=== PATIENT | male | born 1970 | race Caucasian/White ===

== ENCOUNTER 2016-08-23 14:52 | Inpatient (IN) | payer BC, OTHER ==
[2016-08-23 15:35] VITALS: BMI 39.0
--- NOTE | 2016-08-23 16:03 | DIRPT ---
CLINICAL DATA: Cough and congestion for several weeks EXAM: CHEST - 2 VIEW COMPARISON: None. FINDINGS: Cardiac shadow is within normal limits. Patchy infiltrative changes are noted throughout both lungs consistent with acute pneumonia. No sizable effusion is noted. No bony abnormality is noted. IMPRESSION: Multifocal pneumonia bilaterally. Electronically Signed By: Farhad Pérez M.D. On: 08/23/2016 16:00
[2016-08-23] MEDS ORDERED: SODIUM CHLORIDE 0.9% 3 ML FLUSH FLUSH PRN (17:15)
[2016-08-23] MEDS ORDERED: Albuterol/Ipratropium Neb 3 ML NEB NEB ONE (17:15)
--- NOTE | 2016-08-23 17:19 | EDPRACDOC ---
- General Information Information Source: Patient Mode Of Arrival: Car - History of Present Illness Onset: 4WEEKS HPI: PT STATES AROUND [place] HE DEVELOPED A URI AND WAXED AND WANED FOR APPROX 2 WEEKS STATES WAS SEEN AT URGENT CARE DX WITH PNEUMONIA PUT ON LEVAQUIN 5 DAYS AGO AND HAS BEEN GIVEN 1 ROCEPHIN AND KENALOG INJECTION AND STATES HE IS GETTING WORSE NOT BETTER. NOW SHOB WEAK HAVING BILATERAL CHEST PAIN AND CHILLS AND SWEATS, JUST DOESNT FEEL GOOD. FEVER TODAY IS 101.5 ORAL. Shortness of Breath: Moderate Relevant History: Reports: None Cough: Reports: Productive, Yellow (MILD SMALL AMOUNTS) Rhinorrhea: Reports: None Ear Symptoms: Reports: None SOB Worsens with: Reports: Exertion, Movement, Coughing, Lying Flat SOB Improves with: Reports: Nothing Associated Signs and symptoms: Reports: Cough, Fever, Other (WEAKNESS, CHILLS, DONT FEEL GOOD) <Roseanna Segura - Last Filed: 08/23/16 17:56> <Edwin Tenorio - Last Filed: 08/23/16 18:17> - General Information Chief Complaint: Dyspnea/Resp distress Stated Complaint: DX PNEUMONIA PROBLEMS BREATHING Time Seen by Provider: 08/23/16 17:14 Home Medications: Home Medications Albuterol Sulfate [Proair Respiclick] 1 puff INH Q6H PRN 08/23/16 Ibuprofen Tablet [Motrin] 800 mg PO Q6H PRN 08/23/16 Levofloxacin [Levaquin] 750 mg PO DAILY 08/23/16 Allergies/Adverse Reactions: Allergies Allergy/AdvReac Type Severity Reaction Status Date / Time No Known Allergies Allergy Verified 08/23/16 16:10 ED Past Medical History - History Reviewed Yes Nurses notes reviewed and agree except as marked Travel Outside of [place] in the Last 3 Months?: No No Past Medical History: Yes Patient has no past medical history - Patient Medical History Psychological History: Denies: Depression - Social Medical History Smoking Status: Never smoker ETOH: None Substance Abuse: None Lives With: Other Lives In: Home <Roseanna Segura - Last Filed: 08/23/16 17:56> EDM Review of Systems - Review of Systems ROS Negative Except as Marked: Yes All systems reviewed and were negative except as marked Constitutional: Chills, Fever, Weakness. negative: Fatigue, Loss of Appetite Eyes: No Symptoms Reported. negative: Redness, Blurred Vision, Double Vision, Discharge, Pain, Light Sensitive, Photophobia Ears: No Symptoms Reported. negative: Pain, Hearing Loss, Drainage, Ear Pulling Throat: No Symptoms Reported. negative: Pain, Swelling Nose: No Symptoms Reported. negative: Congestion, Bleeding, Discharge, Injection, Swelling, Deformity, Ecchymosis, Tender, Abrasion, Laceration Mouth: No Symptoms Reported. negative: Pain, Drooling Respiratory: Cough, Shortness of Breath. negative: Barky Cough, Brassy Cough, Hemoptysis, Wheezing Cardiovascular: Chest Pain (BILATERAL WHEN TAKING DEEP BREATH OR COUGHING). negative: Cyanosis, Edema, Orthopnea, Palpitations, PND, Syncope, Skin Mottling Gastrointestinal: No Symptoms Reported. negative: Pain, Constipation, Nausea, Vomiting, Diarrhea, Melena, Formula Intolerance Genitourinary: No Symptoms Reported. negative: Dysuria, Hematuria, Frequency, Discharge, Bleeding, Testicular Pain, Neurological: Weakness. negative: Dizziness, Gait Difficulty, Headache, Numbness, Seizure, Speech Difficulty Musculoskeletal: No Symptoms Reported. negative: Neck, Chestwall, Ribs, Back, Shoulder, Arm, Elbow, Forearm, Wrist, Hand, Pelvis, Hip, Femur, Knee, Leg, Ankle , Foot Integumentary: No Symptoms Reported. negative: Itching, Rash, Bruising, Wound Allergic/Immunologic: No Symptoms Reported. negative: Hives, Itching Hematologic: No Symptoms Reported. negative: Lymphadenopathy, Easy Bruising, Easy Bleeding Endocrine: No Symptoms Reported. negative: Weight Gain, Weight Loss Psychiatric: No Symptoms Reported. negative: Anxiety, Depression, Hallucinations, Insomnia, Suicidal <Roseanna Segura - Last Filed: 08/23/16 17:56> - Physical Exam Constitutional: Alert (Awake), No apparent distress Oriented to: Time, Person, Place Last recorded Vital Signs: Last Vital Signs Temp 99.7 F 08/23/16 15:31 Pulse 92 08/23/16 15:31 Resp 20 08/23/16 15:31 BP 143/86 08/23/16 15:31 Pulse Ox 93 08/23/16 15:31 Oxygen Pulse Oxygen Saturation 93 O2 Device Oxygen Flow Rate Fraction of Inspired Oxygen ( FIO2) - HEENT Head: Normal ( normocephalic) Eye Exam: Normal (PERRL, EOMI, Sclera white) Oropharynx: Normal (Pharynx:Moist without exudate,Gums-no swelling) Tympanic Membrane: Normal ENT EAC: Normal TMJ: Normal Nose: No Symptoms Reported (septum midline) Neck: Normal (FROM, trachea at midline) - Respiratory/Cardiovascular Respiratory: Rhonchi, Wheezes (RT > LT) Cardiovascular: Normal - GI Auscultation: Normal (NABS) Palpation: Normal (Soft,No rebound or guarding, non distended) Tenderness: Non tender Montgomery's Sign: Negative - Bladder: Normal - Musculoskeletal Back: Normal (Non-Tender) Extremities: Normal (Normal tone, Pulses 2+ No cyanosis or edema, FROM) - Integumentary Skin: Warm, Clammy Lymphatics: Normal (no adenopathy) - Neurologic Memory Impaired: Normal Motor Function: Normal (Normal tone, Pulses 2+ No cyanosis or edema, FROM) Cranial Nerve: Normal (CN II-X11 intact sensation, strength 5/5) Cerebellar: Normal Mood Description: Normal Perception: Normal <Roseanna Segura - Last Filed: 08/23/16 17:56> - Physical Exam Last recorded Vital Signs: Last Vital Signs Temp 101.5 F H 08/23/16 17:10 Pulse 94 08/23/16 17:48 Resp 22 08/23/16 17:48 BP 131/72 08/23/16 17:48 Pulse Ox 93 08/23/16 18:01 Oxygen Pulse Oxygen Saturation 93 O2 Device Nasal Cannula Oxygen Flow Rate 2 Fraction of Inspired Oxygen ( FIO2) <Edwin Tenorio - Last Filed: 08/23/16 18:17> ED SOB MDM - Differential Diagnosis Differential Diagnosis: Heart Failure, Pnuemonia, Respiratory Insufficiency - Results Result Diagrams: 08/23/16 17:15 08/23/16 17:15 - EKG EKG #1 EKG Time: 17:50 -: Yes EKG interpreted by me Rate: bpm: 93 [place]: Normal (D) Rhythm: NSR Block: None Hypertrophy: None ST: Normal - Diagnostic Imaging CXR Image interpreted by: Radiologist <Roseanna Segura - Last Filed: 08/23/16 17:56> - Results Result Diagrams: 08/23/16 17:15 08/23/16 17:15 Results: WBC 5.6 xk/uL (3.8-10.8) 08/23/16 17:15 RBC 5.37 xM/uL (4.70-6.10) 08/23/16 17:15 Hgb 15.5 g/dL (14.0-18.0) 08/23/16 17:15 Hct 45.5 % (42-52) 08/23/16 17:15 MCV 85 fL (80-94) 08/23/16 17:15 MCH 28.9 pg (27-32) 08/23/16 17:15 MCHC 34.1 g/dl (33-36) 08/23/16 17:15 RDW 13.9 % (11.5-14.5) 08/23/16 17:15 Plt Count 177 xk/uL (130-400) 08/23/16 17:15 MPV 8.6 fL (7.4-10.4) 08/23/16 17:15 Neut % (Auto) 78.6 % (45-76) H 08/23/16 17:15 Lymph % (Auto) 13.1 % (17-44) L 08/23/16 17:15 [place] % (Auto) 6.9 % (3-10) 08/23/16 17:15 Eos % (Auto) 0.0 % (0-5) 08/23/16 17:15 Baso % (Auto) 1.4 % (0-2) 08/23/16 17:15 Absolute Neuts (auto) 4.37 xk/uL (1.7-8.2) 08/23/16 17:15 Absolute Lymphs (auto) 0.73 xk/uL (0.65-4.75) 08/23/16 17:15 PT 10.9 SEC (9.2-11.2) 08/23/16 17:15 INR 1.1 08/23/16 17:15 APTT 28.5 SEC (22-35) 08/23/16 17:15 Puncture Site Right radial 08/23/16 17:29 pH 7.490 pH UNITS (7.35-7.45) H 08/23/16 17:29 pCO2 31.0 mmHg (35-45) L 08/23/16 17:29 pO2 62.0 mmHg (80-100) L 08/23/16 17:29 HCO3 23.6 MMOL/L (22-26) 08/23/16 17:29 Total CO2 24.6 MMOL/L (23-27) 08/23/16 17:29 Base Excess 1.0 (+/- 2) 08/23/16 17:29 FiO2 % 21% 08/23/16 17:29 Specimen Drawn By Kasgl 08/23/16 17:29 Sodium 134 mEq/L (137-146) L 08/23/16 17:15 Potassium 3.7 mEq/L (3.5-5.1) 08/23/16 17:15 Chloride 98 mEq/L (98-107) 08/23/16 17:15 Carbon Dioxide 23 mMOL/L (22-33) 08/23/16 17:15 Anion Gap 17 mEq/L (8-16) H 08/23/16 17:15 BUN 12 MG/DL (9-20) 08/23/16 17:15 Creatinine 0.70 MG/DL (0.66-1.25) 08/23/16 17:15 Estimated GFR (MDRD) > 60 mL/min (>=60) 08/23/16 17:15 Glucose 130 MG/DL (70-99) H 08/23/16 17:15 Calculated Osmolality 260 MOs/Kg (270-290) L 08/23/16 17:15 Lactic Acid 2.0 mEq/L (0.7-2.1) 08/23/16 17:15 Calcium 8.6 MG/DL (8.4-10.2) 08/23/16 17:15 Total Bilirubin 0.7 MG/DL (0.2-1.3) 08/23/16 17:15 AST 45 IU/L (17-59) 08/23/16 17:15 ALT 42 IU/L (21-72) 08/23/16 17:15 Alkaline Phosphatase 71 IU/L (38-126) 08/23/16 17:15 Creatine Kinase 306 IU/L (55-170) H 08/23/16 17:15 Total Protein 7.4 G/DL (6.3-8.2) 08/23/16 17:15 Albumin 4.1 G/DL (3.5-5.0) 08/23/16 17:15 Urine Color Yellow 08/23/16 17:36 Urine Clarity Clear 08/23/16 17:36 Urine pH 5.0 (5.0-8.0) 08/23/16 17:36 Ur Specific [place] 1.020 (1.003-1.035) 08/23/16 17:36 Urine Protein Trace (NEG/TRACE) 08/23/16 17:36 Urine Glucose (UA) Neg (NEGATIVE) 08/23/16 17:36 Urine Ketones Neg (NEGATIVE) 08/23/16 17:36 Urine Occult Blood 1+ (NEG/TRACE) H 08/23/16 17:36 Urine Nitrite Neg (NEGATIVE) 08/23/16 17:36 Urine Bilirubin Neg (NEGATIVE) 08/23/16 17:36 Urine Urobilinogen 0.2 MG/DL (0-1) 08/23/16 17:36 Ur Leukocyte Esterase Neg (NEGATIVE) 08/23/16 17:36 Urine RBC 0-2 (0-2) 08/23/16 17:36 Urine WBC 0-2 (0-2) 08/23/16 17:36 Urine Bacteria Few (NEG/FEW) 08/23/16 17:36 Urine Mucus Mod (NEG/OCC) H 08/23/16 17:36 Lab Results 08/23/16 08/23/16 08/23/16 17:36 17:29 17:15 WBC RBC Hgb Hct MCV MCH MCHC RDW Plt Count MPV Neut % (Auto) Lymph % (Auto) [place] % (Auto) Eos % (Auto) Baso % (Auto) Absolute Neuts (auto) Absolute Lymphs (auto) PT 10.9 INR 1.1 APTT 28.5 Puncture Site Right radial pH 7.490 H pCO2 31.0 L pO2 62.0 L HCO3 23.6 Total CO2 24.6 Base Excess 1.0 FiO2 % 21% Specimen Drawn By Kasgl Sodium Potassium Chloride Carbon Dioxide Anion Gap BUN Creatinine Estimated GFR (MDRD) Glucose Calculated Osmolality Lactic Acid Calcium Total Bilirubin AST ALT Alkaline Phosphatase Creatine Kinase Total Protein Albumin Urine Color Yellow Urine Clarity Clear Urine pH 5.0 Ur Specific [place] 1.020 Urine Protein Trace Urine Glucose (UA) Neg Urine Ketones Neg Urine Occult Blood 1+ H Urine Nitrite Neg Urine Bilirubin Neg Urine Urobilinogen 0.2 Ur Leukocyte Esterase Neg Urine RBC 0-2 Urine WBC 0-2 Urine Bacteria Few Urine Mucus Mod H 08/23/16 08/23/16 08/23/16 17:15 17:15 17:15 WBC 5.6 RBC 5.37 Hgb 15.5 Hct 45.5 MCV 85 MCH 28.9 MCHC 34.1 RDW 13.9 Plt Count 177 MPV 8.6 Neut % (Auto) 78.6 H Lymph % (Auto) 13.1 L [place] % (Auto) 6.9 Eos % (Auto) 0.0 Baso % (Auto) 1.4 Absolute Neuts (auto) 4.37 Absolute Lymphs (auto) 0.73 PT INR APTT Puncture Site pH pCO2 pO2 HCO3 Total CO2 Base Excess FiO2 % Specimen Drawn By Sodium 134 L Potassium 3.7 Chloride 98 Carbon Dioxide 23 Anion Gap 17 H BUN 12 Creatinine 0.70 Estimated GFR (MDRD) > 60 Glucose 130 H Calculated Osmolality 260 L Lactic Acid 2.0 Calcium 8.6 Total Bilirubin 0.7 AST 45 ALT 42 Alkaline Phosphatase 71 Creatine Kinase 306 H Total Protein 7.4 Albumin 4.1 Urine Color Urine Clarity Urine pH Ur Specific [place] Urine Protein Urine Glucose (UA) Urine Ketones Urine Occult Blood Urine Nitrite Urine Bilirubin Urine Urobilinogen Ur Leukocyte Esterase Urine RBC Urine WBC Urine Bacteria Urine Mucus <Edwin Tenorio - Last Filed: 08/23/16 18:17> <Roseanna Segura - Last Filed: 08/23/16 17:56> - Departure Yes I personally saw and evaluated the patient. Disposition: Admit IP To This Hospital Education/Counseling Given To: Patient Education/Counseling Given Regarding: Diagnosis, Treatment, Prognosis Decision to Admit Time: 18:17 Decision to admit date: 08/23/16 Decision to admit: from ED - Physician Consulted Hospitalist Time Called: 18:17 Provider Called: Reza Solorio Time Leaf Conditioner Returned Call: 18:17 <Edwin Tenorio - Last Filed: 08/23/16 18:17> - Departure Condition: Fair Final Diagnosis: Failure of outpatient treatment, Multifocal pneumonia Sepsis Qualifiers: Sepsis type: sepsis due to unspecified organism Qualified Code(s): A41.9 - Sepsis, unspecified organism Referrals: None,No Provider [Primary Care Provider] - One Week
[2016-08-23 17:28] LABS: MPV 8.6 fL (7.4-10.4)
[2016-08-23 17:29] LABS: AUTOMATED BASOPHIL 1.4 % (0-2); AUTOMATED LYMPH 13.1 % (17-44); AUTOMATED MONOCYTE 6.9 % (3-10); AUTOMATED NEUTROPHIL 78.6 % (45-76)
[2016-08-23 17:34] LABS: ABG Draw Site Right Radial; ALLEN'S TEST PASS; TCO2 24.6 MMOL/L (23-27)
[2016-08-23] MEDS ORDERED: ACETAMINOPHEN 325 MG/TAB TABLET PO ONE (17:38)
[2016-08-23] MEDS ORDERED: IBUPROFEN 800 MG TAB PO ONE (17:38)
[2016-08-23 17:39] LABS: PARTIAL THROMB. TIME 28.5 SEC (22-35); PT-INR 1.1
[2016-08-23 17:45] LABS: RBC/URINE 0-2 (0-2); WBC/URINE 0-2 (0-2)
[2016-08-23 17:46] LABS: LEUKOCYTES/URINE NEG (NEGATIVE); NITRITE/URINE NEG (NEGATIVE); URINE OCCULT BLOOD 1+ (NEG/TRACE)
[2016-08-23 17:46] LABS: BLOOD UREA NITROGEN 12 MG/DL (9-20); CALCIUM 8.6 MG/DL (8.4-10.2); CALCULATED OSMOLALITY 260 MOs/Kg (270-290); CHLORIDE 98 mEq/L (98-107); CPK TOTAL WITH POSSIBLE MB 306 IU/L (55-170); GLUCOSE 130 MG/DL (70-99); SODIUM LEVEL 134 mEq/L (137-146); TOTAL PROTEIN 7.4 G/DL (6.3-8.2)
[2016-08-23 18:02] LABS: CPKMB 0.4 ng/mL (0-4.5)
[2016-08-23] MEDS ORDERED: AZITHROMYCIN 500 MG in D5W 250 ML IV ONE (18:12)
[2016-08-23] MEDS ORDERED: CEFTRIAXONE 2 GM in D5W 100 ML IV ONE (18:12)
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
[2016-08-23] MEDS ORDERED: BENZONATATE 100 MG PERLES PO PRN (19:36)
[2016-08-23] MEDS ORDERED: GUAIFEN 100 MG-DEXTROMETH 10 MG PER 5 ML PO PRN (19:36)
[2016-08-23] MEDS ORDERED: SIMETHICONE 80 MG TAB PO PRN (19:36)
[2016-08-23] MEDS ORDERED: Docusate Sodium 100 MG CAP PO PRN (19:36)
[2016-08-23] MEDS ORDERED: ACETAMINOPHEN 325 MG/TAB TABLET PO PRN (19:36)
[2016-08-23] MEDS ORDERED: PROMETHAZINE 25 MG/ML VIAL IV PRN (19:36)
[2016-08-23] MEDS ORDERED: SENNA CONCENTRATE TAB PO PRN (19:36)
[2016-08-23] MEDS ORDERED: TEMAZEPAM 15 MG CAP PO PRN (19:36)
[2016-08-23] MEDS ORDERED: BISACODYL 5 MG TAB PO PRN (19:36)
[2016-08-23] MEDS ORDERED: ACETAMINOPHEN 325 MG SUPP PR PRN (19:36)
[2016-08-23] MEDS ORDERED: ALBUTEROL 0.083% 3 ML NEB NEB PRN (19:36)
[2016-08-23] MEDS ORDERED: NS 1,000 ML IV ONE ×2 (19:40→21:41)
[2016-08-23] MEDS ORDERED: TRAMADOL HCL 50 MG TAB PO PRN (19:42)
[2016-08-23] MEDS ORDERED: Pharmacy Order Set Alert SCH (20:00)
[2016-08-23] MEDS: SODIUM CHLORIDE 0.9% 3 ML FLUSH FLUSH SCH (20:47)
[2016-08-23] MEDS: ONDANSETRON HCL 4 MG/2 ML VIAL IV PRN (20:54)
[2016-08-23] MEDS: ENOXAPARIN 80 MG/0.8 ML PFS SQ SCH (21:50)
[2016-08-23] MEDS ORDERED: Vaccine Screening Complete SCH (22:00)
[2016-08-24] MEDS ORDERED: Vancomycin HCl 0 MG in D5W 500 ML IV SCH (01:26)
[2016-08-24] MEDS: NS 1,000 ML IV SCH ×3 (02:09→23:07)
[2016-08-24] MEDS: SODIUM CHLORIDE 0.9% 3 ML FLUSH FLUSH SCH ×2 (05:53→18:07)
[2016-08-24 07:23] LABS: MPV 8.7 fL (7.4-10.4)
[2016-08-24 07:42] LABS: BLOOD UREA NITROGEN 13 MG/DL (9-20); CALCIUM 7.7 MG/DL (8.4-10.2); CALCULATED OSMOLALITY 266 MOs/Kg (270-290); CHLORIDE 101 mEq/L (98-107); GLUCOSE 97 MG/DL (70-99); SODIUM LEVEL 138 mEq/L (137-146)
--- NOTE | 2016-08-24 16:27 | GENMEDPROG ---
Chief Complaint: sob better Notes Reviewed: Yes Events from last night noted and discussed with Clinical Staff Current Medication List: Reviewed DVT Prophylaxis: Yes - Physical Examination Vital Signs and I&O: Last Vital Signs Temp 97.9 F 08/24/16 13:56 Pulse 89 08/24/16 13:56 Resp 20 08/24/16 13:56 BP 123/67 08/24/16 13:56 Pulse Ox 94 08/24/16 13:56 Oxygen Pulse Oxygen Saturation 94 O2 Device Nasal Cannula Oxygen Flow Rate 2 Fraction of Inspired Oxygen ( FIO2) Intake & Output 08/21/16 08/22/16 08/23/16 08/24/16 23:59 23:59 23:59 23:59 Intake Total 1494 2825 Output Total 50 5425 Balance 1444 -2600 Patient's weight 132.194 kg 133.47 kg General: Alert, Oriented x3, No acute distress, Well appearing, Well nourished HEENT: Normal (Normocephalic, atraumatic;EOMI.Sclera white, Nares patent, without discharge or bleeding. No oropharyngeal lesions or erythema. Mucous membranes are dry.) Neck: Non-tender, Full range of motion, Normal Trachea alignment, Normal inspection (No cervical lymphadenopathy. No supraclavicular lymphadenopathy.), No Masses palpable, Supple Lymphatics: Normal (no adenopathy) Respiratory: Diminished, Rhonchi, Wheezes (RT > LT) Cardiovascular: Regular rate and rhythm (No bradycardia or tachycardia), Normal S1, No Gallops,Rubs/Murmurs, Normal S2, Good Pedal Pulses (DP pulses 2+ bilaterally) GI: Normal bowel sounds (normal active sounds), Soft (non-distended), Non tender , No hepatospenomegaly, No masses, Obese (bmi 38.8) Extremities/Musculoskeletal: Normal pulses (DP pulses 2+ bilaterally) Skin: Warm,Dry and Intact, No rashes, No significant lesion Neurological: Strength at 5/5 X4 ext (Motor 5/5 throughout.), Normal tone, Cranial nerves 3-12 NL ( 2-12 grossly intact.) Psych/Mental Status: Appropriate, Normal Affect Lab/DI/Studies Reviewed: 08/24/16 06:50 08/24/16 06:50 Laboratory Results - last 24 hr 08/23/16 08/23/16 08/23/16 17:15 17:15 17:15 WBC 5.6 RBC 5.37 Hgb 15.5 Hct 45.5 MCV 85 MCH 28.9 MCHC 34.1 RDW 13.9 Plt Count 177 MPV 8.6 Neut % (Auto) 78.6 H Lymph % (Auto) 13.1 L [place] % (Auto) 6.9 Eos % (Auto) 0.0 Baso % (Auto) 1.4 Absolute Neuts (auto) 4.37 Absolute Lymphs (auto) 0.73 PT INR APTT Puncture Site pH pCO2 pO2 HCO3 Total CO2 Base Excess FiO2 % Specimen Drawn By Sodium 134 L Potassium 3.7 Chloride 98 Carbon Dioxide 23 Anion Gap 17 H BUN 12 Creatinine 0.70 Estimated GFR (MDRD) > 60 Glucose 130 H Calculated Osmolality 260 L Lactic Acid 2.0 Calcium 8.6 Total Bilirubin 0.7 AST 45 ALT 42 Alkaline Phosphatase 71 Creatine Kinase 306 H CK-MB (CK-2) 0.4 Myoglobin 97.6 Troponin I < 0.01 [id number]-Dfoiwjwftaz Pept 96 Total Protein 7.4 Albumin 4.1 Urine Color Urine Clarity Urine pH Ur Specific [place] Urine Protein Urine Glucose (UA) Urine Ketones Urine Occult Blood Urine Nitrite Urine Bilirubin Urine Urobilinogen Ur Leukocyte Esterase Urine RBC Urine WBC Urine Bacteria Urine Mucus 08/23/16 08/23/16 08/23/16 17:15 17:29 17:36 WBC RBC Hgb Hct MCV MCH MCHC RDW Plt Count MPV Neut % (Auto) Lymph % (Auto) [place] % (Auto) Eos % (Auto) Baso % (Auto) Absolute Neuts (auto) Absolute Lymphs (auto) PT 10.9 INR 1.1 APTT 28.5 Puncture Site Right radial pH 7.490 H pCO2 31.0 L pO2 62.0 L HCO3 23.6 Total CO2 24.6 Base Excess 1.0 FiO2 % 21% Specimen Drawn By [place] Sodium Potassium Chloride Carbon Dioxide Anion Gap BUN Creatinine Estimated GFR (MDRD) Glucose Calculated Osmolality Lactic Acid Calcium Total Bilirubin AST ALT Alkaline Phosphatase Creatine Kinase CK-MB (CK-2) Myoglobin Troponin I [id number]-Wuuzscoqcys Pept Total Protein Albumin Urine Color Yellow Urine Clarity Clear Urine pH 5.0 Ur Specific [place] 1.020 Urine Protein Trace Urine Glucose (UA) Neg Urine Ketones Neg Urine Occult Blood 1+ H Urine Nitrite Neg Urine Bilirubin Neg Urine Urobilinogen 0.2 Ur Leukocyte Esterase Neg Urine RBC 0-2 Urine WBC 0-2 Urine Bacteria Few Urine Mucus Mod H 08/24/16 08/24/16 06:50 06:50 WBC 4.3 RBC 4.85 Hgb 13.9 L D Hct 41.3 L MCV 85 MCH 28.6 MCHC 33.6 RDW 14.0 Plt Count 159 MPV 8.7 Neut % (Auto) Lymph % (Auto) [place] % (Auto) Eos % (Auto) Baso % (Auto) Absolute Neuts (auto) Absolute Lymphs (auto) PT INR APTT Puncture Site pH pCO2 pO2 HCO3 Total CO2 Base Excess FiO2 % Specimen Drawn By Sodium 138 Potassium 4.8 D Chloride 101 Carbon Dioxide 30 Anion Gap 12 BUN 13 Creatinine 0.80 Estimated GFR (MDRD) > 60 Glucose 97 Calculated Osmolality 266 L Lactic Acid Calcium 7.7 L Total Bilirubin AST ALT Alkaline Phosphatase Creatine Kinase CK-MB (CK-2) Myoglobin Troponin I [id number]-Gydvepmesxv Pept Total Protein Albumin Urine Color Urine Clarity Urine pH Ur Specific [place] Urine Protein Urine Glucose (UA) Urine Ketones Urine Occult Blood Urine Nitrite Urine Bilirubin Urine Urobilinogen Ur Leukocyte Esterase Urine RBC Urine WBC Urine Bacteria Urine Mucus - Assessment (1) Multifocal pneumonia Acute J18.9 - PNEUMONIA, UNSPECIFIED ORGANISM Comment/Plan: Getting IV Rocephin Zithromax and probiotic. Will discontinue the vancomycin has some not aware of any risk factors for this other than he has been on Levaquin and failed it. (2) Abnormal glucose Acute R73.09 - OTHER ABNORMAL GLUCOSE Comment/Plan: Glucose level on admission is 130. Not fasting. Plan: Rechecked glucose fasting and is not elevated. (3) Smokeless tobacco use Acute Z72.0 - TOBACCO USE Comment/Plan: Never smoked but does use smokeless tobacco. 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 (4) Hypoxia Acute R09.02 - HYPOXEMIA Comment/Plan: Patient's PO2 is low. Plan: Place patient on oxygen by nasal cannula and increase to Venti Mask 40% if needed. Monitor oxygen saturation levels and keep O2 sats greater than 92%. (5) Obesity (BMI 35.0-39.9 without comorbidity) Chronic E66.9 - OBESITY, UNSPECIFIED Comment/Plan: BMI 38.8 weight reduction necessary. Case Care Discussed with: Patient, Nursing Staff Education/Counseling Given To: Patient Education/Counseling Given Regarding: Diagnosis Total Time: 38 min Critical Care: No Code: 96129 (12+)
[2016-08-24] MEDS: CEFTRIAXONE 1 GM in D5W 100 ML IV SCH (18:06)
[2016-08-24] MEDS: ENOXAPARIN 80 MG/0.8 ML PFS SQ SCH (18:06)
[2016-08-24] MEDS: PROBIOTIC BLEND TAB PO SCH (18:07)
[2016-08-24] MEDS: AZITHROMYCIN 500 MG in D5W 250 ML IV SCH (20:01)
[2016-08-24] MEDS: ONDANSETRON HCL 4 MG/2 ML VIAL IV PRN (20:40)
[2016-08-25] MEDS: NS 1,000 ML IV SCH ×3 (04:13→17:25)
[2016-08-25] MEDS: SODIUM CHLORIDE 0.9% 3 ML FLUSH FLUSH SCH ×2 (04:13→17:31)
--- NOTE | 2016-08-25 09:45 | GENMEDPROG ---
Chief Complaint: c/o coughing up green phlegm less sob l ant pleuritic pain Notes Reviewed: Yes Events from last night noted and discussed with Clinical Staff Current Medication List: Reviewed Currently: Reports: Cough, Sputum (green) DVT Prophylaxis: Yes - Physical Examination Vital Signs and I&O: Last Vital Signs Temp 98.2 F 08/25/16 09:23 Pulse 67 08/25/16 09:23 Resp 20 08/25/16 09:23 BP 138/73 08/25/16 09:23 Pulse Ox 92 08/25/16 09:23 Oxygen Pulse Oxygen Saturation 92 O2 Device Room Air Oxygen Flow Rate 2 Fraction of Inspired Oxygen ( FIO2) Intake & Output 08/22/16 08/23/16 08/24/16 08/25/16 23:59 23:59 23:59 23:59 Intake Total 1494 6316 400 Output Total 50 9750 1875 Balance 2363 -1848 -0355 Patient's weight 132.194 kg 133.47 kg 133.628 kg General: Alert, Oriented x3, No acute distress, Well appearing, Well nourished HEENT: Normal (Normocephalic, atraumatic;EOMI.Sclera white, Nares patent, without discharge or bleeding. No oropharyngeal lesions or erythema. Mucous membranes are dry.) Neck: Non-tender, Full range of motion, Normal Trachea alignment, Normal inspection (No cervical lymphadenopathy. No supraclavicular lymphadenopathy.), No Masses palpable, Supple Lymphatics: Normal (no adenopathy) Respiratory: Diminished, Rhonchi, Wheezes (RT > LT) Cardiovascular: Regular rate and rhythm (No bradycardia or tachycardia), Normal S1, No Gallops,Rubs/Murmurs, Normal S2, Good Pedal Pulses (DP pulses 2+ bilaterally) GI: Normal bowel sounds (normal active sounds), Soft (non-distended), Non tender , No hepatospenomegaly, No masses, Obese (bmi 38.8) Extremities/Musculoskeletal: Normal pulses (DP pulses 2+ bilaterally) Skin: Warm,Dry and Intact, No rashes, No significant lesion Neurological: Strength at 5/5 X4 ext (Motor 5/5 throughout.), Normal tone, Cranial nerves 3-12 NL ( 2-12 grossly intact.) Psych/Mental Status: Appropriate, Normal Affect Lab/DI/Studies Reviewed: 08/24/16 06:50 08/24/16 06:50 - Assessment (1) Multifocal pneumonia Acute J18.9 - PNEUMONIA, UNSPECIFIED ORGANISM Comment/Plan: Getting IV Rocephin Zithromax and probiotic. (2) Abnormal glucose Acute R73.09 - OTHER ABNORMAL GLUCOSE Comment/Plan: Glucose level on admission is 130. Not fasting. Plan: Rechecked glucose fasting and is not elevated. (3) Hypoxia Acute R09.02 - HYPOXEMIA Comment/Plan: Patient's PO2 is low. Plan: Place patient on oxygen by nasal cannula and increase to Venti Mask 40% if needed. Monitor oxygen saturation levels and keep O2 sats greater than 92%. (4) Obesity (BMI 35.0-39.9 without comorbidity) Chronic E66.9 - OBESITY, UNSPECIFIED Comment/Plan: BMI 38.8 weight reduction necessary. (5) Smokeless tobacco use Resolved Z72.0 - TOBACCO USE Comment/Plan: Never smoked but does use smokeless tobacco. 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 Case Care Discussed with: Patient, Nursing Staff, Resource Management Education/Counseling Given To: Patient Education/Counseling Given Regarding: Diagnosis Total Time: 39 min Critical Care: No Code: 59965 (12+)
[2016-08-25] MEDS: PROBIOTIC BLEND TAB PO SCH ×2 (11:19→17:26)
[2016-08-25] MEDS: CEFTRIAXONE 1 GM in D5W 100 ML IV SCH (17:26)
[2016-08-25] MEDS: ENOXAPARIN 80 MG/0.8 ML PFS SQ SCH (17:26)
[2016-08-25] MEDS: AZITHROMYCIN 500 MG in D5W 250 ML IV SCH (20:36)
[2016-08-25] MEDS: ONDANSETRON HCL 4 MG/2 ML VIAL IV PRN (20:41)
[2016-08-26] MEDS: NS 1,000 ML IV SCH ×2 (03:42→05:40)
[2016-08-26] MEDS: SODIUM CHLORIDE 0.9% 3 ML FLUSH FLUSH SCH (05:38)
--- NOTE | 2016-08-26 08:59 | DIRPT ---
CLINICAL DATA: Bilateral pneumonia. EXAM: CHEST 2 VIEW COMPARISON: 08/23/2016. FINDINGS: Stable cardiomegaly. Persistent patchy bilateral pulmonary infiltrates again noted most consistent multifocal pneumonia. No interim clearing. No pleural effusion or pneumothorax. IMPRESSION: 1. Stable cardiomegaly. 2. Persistent patchy bilateral pulmonary infiltrates consistent with multifocal pneumonia. Electronically Signed By: Rivas Mckeon On: 08/26/2016 08:56
[2016-08-26 10:04] VITALS: BP 123/70; PULSE 63; TEMP 98
[2016-08-26] MEDS: PROBIOTIC BLEND TAB PO SCH (11:48)
--- NOTE | 2016-08-26 12:03 | PCM.DCS92 ---
- Final/Secondary Discharge Diagnosis (1) Multifocal pneumonia Acute J18.9 - PNEUMONIA, UNSPECIFIED ORGANISM Present on Admission: Yes Comment: Getting IV Rocephin Zithromax and probiotic. (2) Abnormal glucose Acute R73.09 - OTHER ABNORMAL GLUCOSE Present on Admission: Yes Comment: Glucose level on admission is 130. Not fasting. Plan: Rechecked glucose fasting and is not elevated. (3) Hypoxia Acute R09.02 - HYPOXEMIA Present on Admission: Yes Comment: Patient's PO2 is low. Plan: Place patient on oxygen by nasal cannula and increase to Venti Mask 40% if needed. Monitor oxygen saturation levels and keep O2 sats greater than 92%. (4) Obesity (BMI 35.0-39.9 without comorbidity) Chronic E66.9 - OBESITY, UNSPECIFIED Present on Admission: Yes Comment: BMI 39 weight reduction necessary. (5) Smokeless tobacco use Resolved Z72.0 - TOBACCO USE Present on Admission: Yes Comment: Never smoked but does use smokeless tobacco. 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 Discharge Disposition: Home Discharge Condition: Improved Cognitive Discharge Status: Unimpaired Fuctional Discharge Status: Independent Physician Follow up/Referrals: Kateryna Mehta DO [Ambulatory] - 09/04/16 Home Medications / New Prescriptions: New Benzonatate [Tessalon] 200 mg PO TID #30 capsule Cefdinir [Omnicef] 300 mg PO BID #20 cap Probiotic Blend [Gifty Q] 1 tab PO BIDLS #30 tablet Tussionex [Tussionex Oral Suspension] 5 ml PO BID PRN #120 ml PRN Reason: Cough Montelukast Sodium [Singulair] 10 mg PO DAILY #14 tab Continue Levofloxacin [Levaquin] 750 mg PO DAILY Albuterol Sulfate [Proair Respiclick] 1 puff INH Q6H PRN PRN Reason: Shortness Of Breath Ibuprofen Tablet [Motrin] 800 mg PO Q6H PRN PRN Reason: Mild Pain Or Fever Discharge Home Medication List Albuterol Sulfate [Proair Respiclick] 1 puff INH Q6H PRN 08/23/16 [History Confirmed 08/23/16 Last Taken Unknown] Ibuprofen Tablet [Motrin] 800 mg PO Q6H PRN 08/23/16 [History Confirmed Last Taken 08/23/16] Levofloxacin [Levaquin] 750 mg PO DAILY 08/23/16 [History Confirmed 08/23/16 Last Taken 08/23/16] Benzonatate [Tessalon] 200 mg PO TID #30 capsule 08/26/16 [Rx Last Taken Unknown ] Cefdinir [Omnicef] 300 mg PO BID #20 cap 08/26/16 [Rx Last Taken Unknown] Montelukast Sodium [Singulair] 10 mg PO DAILY #14 tab 08/26/16 [Rx Last Taken Unknown] Probiotic Blend [Gifty Q] 1 tab PO BIDLS #30 tablet 08/26/16 [Rx Last Taken Unknown] Tussionex [Tussionex Oral Suspension] 5 ml PO BID PRN #120 ml 08/26/16 [Rx Last Taken Unknown] 08/24/16 06:50 08/24/16 06:50 O2 Device: Room Air Additional Instructions: DR MEHTA OFFICE SAID PATIENT WILL HAVE TO COME IN AND FILL OUT PAPER WORK BEFORE THEY CAN SET UP APPT. Diet at Discharge: Heart Healthy, 1800 Calorie Activity: As Tolerated Discontinue use of:: Alcohol, All Types of Tobacco - DC Summary Notes HPI/Notes: The patient is a 45 yo man with no history of asthma, lifelong non-smoker, who presents with shortness of breath. He reports he as been sick with a respiratory infection since ; it would get better and then later worse again, but in the last week much worse. He has been on several treatments including various antibiotics. He went to urgent care Thursday (4 days ago), where he was told he has pneumonia; they gave IM Rocephin and he has been taking Levaqin PO since then. Was also wheezing and has a non-productive cough. He noted a fever to 103 at home, and had chills. Onset: approximately 4 weeks ago, recurrent with most recent worsening over the last week. Duration: intermittent. Location: generalized. Character: shortness of breath on exertion and difficulty getting a good breath. Alleviated by: Nothing. Exacerbated by: Exertion. Associated Symptoms: No weight gain; has lost weight. No leg swelling. Coughing but non-productive. Wheezing. Shortness of breath. Occasional chest pain bilaterally with coughing. No palpitations. Fever to 103 at home. Chills. Has had intermittent fever x 1 week. Frequent back pain that is chronic. Treatments: none at home except usual medications. Given albuterol inhaler and made his heart race and felt shaky. Hospital Course Note:: Discharge summary on patient named MARIS TRAN III admitted to [facility] on 08/23/16 by Reza Solorio MD. Date of discharge is 08/26/2016. Patient was admitted with multifocal pneumonia that was apparently resistant to therapy given him outpatient. He was started on Rocephin and Zithromax tolerating this well he continued to improve and was fell ready for discharge today. He was given a prescription for the above-mentioned antibiotics to continue for the next 10 days. CC: Dr. Mehta Total Time: 40 min Code: 07306 (>30min.) - Physical Exam Vital Signs: Last Vital Signs Temp 98 F 08/26/16 09:40 Pulse 63 08/26/16 09:40 Resp 18 08/26/16 09:40 BP 123/70 08/26/16 09:40 Pulse Ox 96 08/26/16 09:40 Oxygen Pulse Oxygen Saturation 96 O2 Device Room Air Oxygen Flow Rate 2 Fraction of Inspired Oxygen ( FIO2) Constitutional: Alert (Awake), No apparent distress Oriented to: Time, Person, Place - HEENT Head: Normal ( normocephalic) Eye: Normal (PERRL, EOMI, Sclera white) Oropharynx: Normal (Pharynx:Moist without exudate,Gums-no swelling) Tympanic Membrane: Normal ENT EAC: Normal TMJ: Normal Nose: No Symptoms Reported (septum midline) - Respiratory/Cardiovascular Respiratory: Diminished, Rhonchi, Wheezes (RT > LT) Cardiovascular: Normal (RRR , Normal S1, S2. No murmurs, rubs, or gallops. PMI non-displaced. Carotids: no carotid bruits. No bradycardia or tachycardia. DP pulses 2+ bilaterally.) - GI Auscultation: Normal (NABS) Palpation: Normal (Soft,No rebound or guarding, non distended) Tenderness: Non tender Montgomery's Sign: Negative - Musculoskeletal Back: Normal (Non-Tender) Extremities: Normal (Normal tone, Pulses 2+ No cyanosis or edema, FROM) - Integumentary Skin: Normal (Warm dry no rashes) Lymphatics: Normal (no adenopathy) - Neurologic Memory Impaired: Normal Motor Function: Normal (Motor 5/5 throughout.Normal tone, Pulses 2+ No cyanosis or edema, FROM) Cranial Nerve: Normal (CN II-XII intact sensation, strength 5/5) Cerebellar: Normal Mood Description: Normal Perception: Normal
[2016-08-26] MEDS ORDERED: CEFTRIAXONE 1 GM in D5W 100 ML IV ONE (13:00)
== END 2016-08-26 14:05 | disposition home or self-care (01) | DRG 871 ==
LOC: ED 14:52 → MPS3 19:03
PROVIDERS: ADMIT Internal Medicine; ATTEND Internal Medicine
PROC: 039B3ZZ Drainage of Right Radial Artery, Percutaneous Approach (ICD-10-PCS; principal; 2016-08-23)
DX: A41.9 Sepsis, unspecified organism (principal); J15.9 Unspecified bacterial pneumonia; R09.02 Hypoxemia; R06.2 Wheezing; R73.09 Other abnormal glucose; Z72.0 Tobacco use; Z71.6 Tobacco abuse counseling; E66.9 Obesity, unspecified; Z68.39 Body mass index [BMI] 39.0-39.9, adult
CPT/HCPCS: 31720; 36415; 36600; 71020; 80048; 80053; 81001; 82550; 82553; 82803; 82962; 83605; 83874; 83880; 84484; 85025; 85027; 85610; 85730; 87040; 87070; 87086; 87205; 87804; 89220; 93005; 94640; 96365; 96366; 96372; 98960; 99284; 99406; G0237; J0456; J0696; J1650; J2405; J3370; J3490; J7060; J7070; J7620